=== PATIENT | female | born 1940 | race Caucasian/White ===

== ENCOUNTER → 2017-06-14 | Outpatient (REF) | payer MEDICARE, BC, OTHER | LOC: M SFHCCLAY 10:25 | PROVIDERS: ATTEND Family Medicine | DX: R73.01 Impaired fasting glucose (principal); E78.5 Hyperlipidemia, unspecified | CPT/HCPCS: 80061; 83036; G0463 ==

== ENCOUNTER → 2017-12-14 | Outpatient (CLI) | payer MEDICARE, BC, OTHER | LOC: M CLY 08:28 | DX: M25.775 Osteophyte, left foot (principal); M19.072 Primary osteoarthritis, left ankle and foot | CPT/HCPCS: 73630; G0463 ==

== ENCOUNTER 2018-03-15 10:18 | Day surgery (SDC) | payer MEDICARE, BC, OTHER ==
[~2018-03-15 10:18] MED LIST: LIDOCAINE 2% INJ 100 MG/5 ML SDV (FOR ANES.) As Ordered; PROPOFOL 500 MG/50 ML VIAL As Ordered
[2018-03-15] MEDS: LR 1,000 ML IV (10:50)
[2018-03-15] MEDS ORDERED: PHENYLephrine HCL 500 MCG/5 ML (100MCG/ML) SYRINGE (J2370) As Ordered (11:53)
[2018-03-15] MEDS ORDERED: ePHEDrine SULFATE 25 MG/5 ML(5MG/ML) SYRINGE As Ordered (12:18)
[2018-03-15] MEDS ORDERED: LIQUID POLIBAR PLUS 105% w/v 1900ML BTL As Ordered (13:58)
== END 2018-03-15 14:30 | disposition home or self-care (01) ==
LOC: M OPP 10:18
DX: Z12.11 Encounter for screening for malignant neoplasm of colon (principal); Z80.0 Family history of malignant neoplasm of digestive organs; Q43.8 Other specified congenital malformations of intestine; K56.699 Other intestinal obstruction unspecified as to partial versus complete obstruction; K22.70 Barrett's esophagus without dysplasia; K31.7 Polyp of stomach and duodenum; K44.9 Diaphragmatic hernia without obstruction or gangrene; I35.9 Nonrheumatic aortic valve disorder, unspecified; I12.9 Hypertensive chronic kidney disease with stage 1 through stage 4 chronic kidney disease, or unspecified chronic kidney disease; E78.5 Hyperlipidemia, unspecified; K21.9 Gastro-esophageal reflux disease without esophagitis; G62.9 Polyneuropathy, unspecified; N18.3 Chronic kidney disease, stage 3 (moderate); E66.9 Obesity, unspecified; Z87.891 Personal history of nicotine dependence; Z88.5 Allergy status to narcotic agent; Z79.82 Long term (current) use of aspirin; Z79.899 Other long term (current) drug therapy
CPT/HCPCS: 45378

== ENCOUNTER → 2018-10-03 | Outpatient (REF) | payer MEDICARE, OTHER ==
[~2018-10-03] MED LIST changes: +AMLO5TAB4 PO; +ASPI81TA85 PO; +ATEN50TA2 PO; +ATOR1TAB21 PO; +CALC1CAP31 PO; +FURO20TA2 PO; -LIDOCAINE 2% INJ 100 MG/5 ML SDV (FOR ANES.) As Ordered; +OMEP20CA3 PO; -PROPOFOL 500 MG/50 ML VIAL As Ordered; +SPIR-10 PO
[2018-10-03 11:47] LABS: CHOLESTEROL RISK RATIO 3.272 (<5)
[2018-10-03 12:31] LABS: HEMOGLOBIN A1c 6.4 %
== END ==
LOC: M SFHCCLAY 07:37
PROVIDERS: ATTEND Family Medicine
DX: E78.5 Hyperlipidemia, unspecified (principal); R73.01 Impaired fasting glucose
CPT/HCPCS: 80061; 83036; G0463

== ENCOUNTER → 2019-07-25 | Outpatient (CLI) | payer MEDICARE, OTHER ==
[~2019-07-25] MED LIST changes: -AMLO5TAB4 PO; +AMLO5TAB6 PO; -OMEP20CA3 PO; +OMEP20CA4 PO
--- NOTE | 2019-07-25 14:47 | REP ---
PA and lateral chest: There are no comparisons. The lung foster are hyperinflated. There are no infiltrates. There are no pleural effusions. There are no masses or nodules. The lung foster otherwise clear. Cardiac size is normal. The keith, mediastinum, and skeletal structures are unremarkable for patient age. Impression: Hyperinflation. No acute cardiopulmonary findings. Electronically Signed by Tang Maurice MD 07/25/2019 02:38 P
== END ==
LOC: M CLY 11:35
PROVIDERS: ATTEND Family Medicine
DX: R05 Cough (principal)

== ENCOUNTER → 2019-10-05 | Outpatient (REF) | payer MEDICARE, OTHER ==
[~2019-10-05] MED LIST changes: +OMEP-172 PO; -OMEP20CA4 PO
[2019-10-05 12:29] LABS: CHOLESTEROL RISK RATIO 3.105 (<5)
[2019-10-05 12:45] LABS: HEMOGLOBIN A1c 6.3 %
== END ==
LOC: M SFHCCLAY 08:13
PROVIDERS: ATTEND Family Medicine
DX: E78.5 Hyperlipidemia, unspecified (principal); R73.01 Impaired fasting glucose
CPT/HCPCS: 80061; 83036; G0463

== ENCOUNTER → 2020-02-27 | Outpatient (CLI) | payer MEDICARE, BC, OTHER ==
[~2020-02-27] MED LIST changes: -OMEP-172 PO; +OMEP1CAP73 PO
--- NOTE | 2020-02-27 14:10 | REP ---
MRI BRAIN WITHOUT CONTRAST: HISTORY: Alzheimer's disease, late onset. Memory deficit. No comparison brain imaging. TECHNIQUE: Axial and sagittal imaging planes are utilized for T1- and T2-weighted scans. Sequences include spin-echo, fast spin echo, FLAIR, and diffusion weighted sequences. MRI FINDINGS: No bony calvarial lesion is appreciated. Craniocervical junction and upper cervical cord are unremarkable. No intraorbital abnormality is seen. There is no MR evidence of significant paranasal sinus disease. On diffusion weighted scans, there is no evidence of restricted diffusion to suggest acute ischemia. No evidence of intracranial hemorrhage or mass lesion is observed. There is mild generalized volume loss. T2-weighted scans demonstrate multifocal periventricular and subcortical T2 hyperintense foci consistent with microvascular atherosclerotic changes. The exam is otherwise unremarkable. IMPRESSION: Mild diffuse atrophy and small vessel changes. No acute intracranial abnormality. Electronically Signed by Milind Farias MD 02/27/2020 04:40 P
== END ==
LOC: M RAD 12:04
PROVIDERS: ATTEND Family Medicine
DX: G30.1 Alzheimer's disease with late onset (principal); I67.9 Cerebrovascular disease, unspecified

== ENCOUNTER 2020-07-30 10:22 | Emergency (ER) | payer MEDICARE, BC, OTHER ==
[~2020-07-30] VITALS: Ht 165.1 cm; Wt 76.4 kg
[~2020-07-30 10:22] MED LIST changes: +AMLO1TAB24 PO; -AMLO5TAB6 PO; -ASPI81TA85 PO; +ASPI81TA86 PO
[2020-07-30] MEDS ORDERED: LOSA25TA14 (10:37)
[2020-07-30] MEDS ORDERED: DONE10TA90 (10:37)
[2020-07-30 14:46] VITALS: BP 164/72
--- NOTE | 2020-07-31 08:25 | ECGEPIP ---
[facility] - ED Test Date: 2020-07-30 Pat Name: NICKI LOAIZA Department: Room: - Gender: Female Quality Systems Technician: RONALD : 1940 Requested By: SERGIO NOONAN D.O. Order Number: [id number] Reading MD: Lala Everett Measurements Intervals Caroline Rate: 50 P: 53 PA: 155 QRS: 40 QRSD: 89 T: 56 QT: 412 QTc: 379 Interpretive Statements SINUS BRADYCARDIA NSTTW abnormalities baseline artifact may affect interpretation NO PRIOR Electronically Signed on 07-31-2020 8:25:15 EDT by Lala Everett
== END 2020-07-30 14:47 | disposition home or self-care (01) ==
LOC: M ED 10:22
DX: R00.1 Bradycardia, unspecified (principal); I35.9 Nonrheumatic aortic valve disorder, unspecified; I10 Essential (primary) hypertension; K21.9 Gastro-esophageal reflux disease without esophagitis; F03.90 Unspecified dementia, unspecified severity, without behavioral disturbance, psychotic disturbance, mood disturbance, and anxiety; Z87.891 Personal history of nicotine dependence; Z88.6 Allergy status to analgesic agent; Z79.82 Long term (current) use of aspirin; Z79.899 Other long term (current) drug therapy
CPT/HCPCS: 36415; 84484; 93005; 99284; G0463

== ENCOUNTER → 2020-08-23 | Outpatient (REF) | payer MEDICARE, OTHER ==
[~2020-08-23] MED LIST changes: +DONE10TA90; +LOSA25TA14
[2020-08-23 17:38] LABS: ALBUMIN 3.9 GM/DL (3.2-5.2); BILIRUBIN,TOTAL 1.1 MG/DL (0.2-1.0); CALCIUM LEVEL 9.4 MG/DL (8.8-10.2); CHOLESTEROL RISK RATIO 3.4 (<5); CREATININE FOR GFR 1.29 MG/DL (0.55-1.30); GLOMERULAR FILTRATION RATE 42.6 (>39); POTASSIUM SERUM 4.3 MEQ/L (3.5-5.1); THYROID STIMULATING HORMONE 1.67 uIU/ML (0.358-3.740)
[2020-08-23 18:17] LABS: HEMOGLOBIN A1c 5.6 %
== END ==
LOC: M SFHCCLAY 09:58
PROVIDERS: ATTEND Dermatology
DX: R63.4 Abnormal weight loss (principal); E78.5 Hyperlipidemia, unspecified; R73.01 Impaired fasting glucose

== ENCOUNTER → 2020-10-08 | Outpatient (REF) | payer MEDICARE, OTHER ==
[2020-10-08 16:22] LABS: HEMATOCRIT 43.7 % (36.0-47.0); HEMOGLOBIN 13.7 g/dl (12.0-15.5); MEAN CORPUSCULAR HEMOGLOBIN 27.3 pg (27.0-33.0); MEAN CORPUSCULAR HGB CONC 31.4 g/dl (32.0-36.5); MEAN CORPUSCULAR VOLUME 87.2 fl (80.0-96.0); PLATELET COUNT, AUTOMATED 335 10^3/uL (150-450); RED BLOOD COUNT 5.01 10^6/uL (4.00-5.40); WHITE BLOOD COUNT 7.6 10^3/uL (4.0-10.0)
[2020-10-08 16:27] LABS: ALBUMIN 3.5 GM/DL (3.2-5.2); BILIRUBIN,DIRECT 0.2 MG/DL (0.0-0.2); BILIRUBIN,TOTAL 0.8 MG/DL (0.2-1.0); TOTAL PROTEIN 6.9 GM/DL (6.4-8.2)
== END ==
LOC: M SFHCDERM 09:59
PROVIDERS: ATTEND Dermatology
DX: L40.9 Psoriasis, unspecified (principal)

== ENCOUNTER → 2020-11-15 | Outpatient (REF) | payer MEDICARE, OTHER ==
[2020-11-15 12:26] LABS: BASO % 0.6 % (0.0-1.0); EOS % 0.4 % (0.0-3.0); HEMATOCRIT 45.9 % (36.0-47.0); HEMOGLOBIN 14.7 g/dl (12.0-15.5); LYMPH # 1.1 10^3/uL (1.5-5.0); LYMPH % 20.3 % (24.0-44.0); MEAN CORPUSCULAR HEMOGLOBIN 27.7 pg (27.0-33.0); MEAN CORPUSCULAR VOLUME 86.6 fl (80.0-96.0); MONO # 0.4 10^3/uL (0.0-0.8); MONO % 7.3 % (0.0-5.0); NEUTROPHILS # 3.7 10^3/uL (1.5-8.5); PLATELET COUNT, AUTOMATED 287 10^3/uL (150-450); WHITE BLOOD COUNT 5.2 10^3/uL (4.0-10.0)
[2020-11-15 12:59] LABS: ALBUMIN 4.2 GM/DL (3.2-5.2); BILIRUBIN,TOTAL 1.1 MG/DL (0.2-1.0); CREATININE FOR GFR 1.23 MG/DL (0.55-1.30); POTASSIUM SERUM 4.7 MEQ/L (3.5-5.1); TOTAL PROTEIN 7.2 GM/DL (6.4-8.2)
== END ==
LOC: M SFHCCLAY 09:07
PROVIDERS: ATTEND Family Medicine
DX: I12.9 Hypertensive chronic kidney disease with stage 1 through stage 4 chronic kidney disease, or unspecified chronic kidney disease (principal); N18.32 Chronic kidney disease, stage 3b
CPT/HCPCS: 80053; 85025; G0463

== ENCOUNTER → 2020-12-30 | Outpatient (REF) | payer MEDICARE, OTHER ==
[2020-12-30 16:18] LABS: HEMATOCRIT 42.3 % (36.0-47.0); HEMOGLOBIN 13.6 g/dl (12.0-15.5); MEAN CORPUSCULAR HGB CONC 32.2 g/dl (32.0-36.5); MEAN CORPUSCULAR VOLUME 87.2 fl (80.0-96.0); PLATELET COUNT, AUTOMATED 246 10^3/uL (150-450); RED BLOOD COUNT 4.85 10^6/uL (4.00-5.40); WHITE BLOOD COUNT 8.2 10^3/uL (4.0-10.0)
[2020-12-30 16:37] LABS: ALBUMIN 3.8 GM/DL (3.2-5.2); BILIRUBIN,DIRECT 0.3 MG/DL (0.0-0.2); BILIRUBIN,TOTAL 0.9 MG/DL (0.2-1.0); TOTAL PROTEIN 6.7 GM/DL (6.4-8.2)
== END ==
LOC: M SFHCDERM 12:53
PROVIDERS: ATTEND Dermatology
DX: L40.9 Psoriasis, unspecified (principal)
CPT/HCPCS: 80076; 84478; 85027; G0463

== ENCOUNTER → 2021-01-14 | Outpatient (REF) | payer MEDICARE, OTHER ==
[2021-01-14 17:51] LABS: HEPATITIS A ANTIBODY IGM NEGATIVE (NEGATIVE); HEPATITIS B CORE ANTIBODY IGM NEGATIVE (NEGATIVE); HEPATITIS B SURFACE ANTIBODY NEGATIVE (POSITIVE); HEPATITIS B SURFACE ANTIGEN NEGATIVE (NEGATIVE); HEPATITIS C VIRUS ABY INDEX < 0.0 INDEX (<0.8); HIV 1&2 SCREEN CENTAUR NEGATIVE (NEGATIVE)
== END ==
LOC: M SFHCDERM 11:19
PROVIDERS: ATTEND Dermatology
DX: L40.9 Psoriasis, unspecified (principal)

== ENCOUNTER → 2021-06-05 | Outpatient (REF) | payer MEDICARE, OTHER ==
[2021-06-05 12:35] LABS: ALBUMIN 3.9 GM/DL (3.2-5.2); ALT/SGPT 18 U/L (12-78); BILIRUBIN,TOTAL 1.2 MG/DL (0.2-1.0); BLOOD UREA NITROGEN 18 MG/DL (7-18); CALCIUM LEVEL 9.8 MG/DL (8.8-10.2); CARBON DIOXIDE LEVEL 32 MEQ/L (21-32); CHLORIDE LEVEL 104 MEQ/L (98-107); CHOLESTEROL LEVEL 133 MG/DL (<200); CHOLESTEROL RISK RATIO 2.955 (<5); CREATININE FOR GFR 0.95 MG/DL (0.55-1.30); GLOMERULAR FILTRATION RATE > 60.0 (>39); GLUCOSE, FASTING 89 MG/DL (70-100); HDL CHOLESTEROL 45 MG/DL (>40); LDL CHOLESTEROL 72 MG/DL (<100); MAGNESIUM LEVEL 2.2 MG/DL (1.8-2.4); NON-HDL-C 88 MG/DL; POTASSIUM SERUM 4.3 MEQ/L (3.5-5.1); SODIUM LEVEL 141 MEQ/L (136-145); TRIGLYCERIDES LEVEL 82 MG/DL (<150)
[2021-06-05 13:12] LABS: HEMOGLOBIN A1c 5.6 %
== END ==
LOC: M SFHCCLAY 09:22
PROVIDERS: ATTEND Family Medicine
DX: G30.1 Alzheimer's disease with late onset (principal); R73.01 Impaired fasting glucose; E78.5 Hyperlipidemia, unspecified; K21.9 Gastro-esophageal reflux disease without esophagitis

== ENCOUNTER → 2021-06-20 | Outpatient (REF) | payer MEDICARE, OTHER | LOC: M LAB REF 13:49 | PROVIDERS: ATTEND Physician Assistant | DX: L85.8 Other specified epidermal thickening (principal) ==

== ENCOUNTER → 2021-10-16 | Outpatient (REF) | payer MEDICARE, OTHER ==
[2021-10-16 12:00] LABS: BASO % 0.9 % (0.0-1.0); EOS % 0.9 % (0.0-3.0); HEMATOCRIT 47.1 % (36.0-47.0); HEMOGLOBIN 15.3 g/dl (12.0-15.5); LYMPH # 1.7 10^3/uL (1.5-5.0); MEAN CORPUSCULAR HEMOGLOBIN 28.4 pg (27.0-33.0); MEAN CORPUSCULAR HGB CONC 32.5 g/dl (32.0-36.5); MEAN CORPUSCULAR VOLUME 87.4 fl (80.0-96.0); MONO # 0.5 10^3/uL (0.0-0.8); MONO % 9.6 % (2.0-8.0); NEUTROPHILS # 2.4 10^3/uL (1.5-8.5); NEUTROPHILS % 51.4 % (36.0-66.0); PLATELET COUNT, AUTOMATED 212 10^3/uL (150-450); RED BLOOD COUNT 5.39 10^6/uL (4.00-5.40); WHITE BLOOD COUNT 4.7 10^3/uL (4.0-10.0)
[2021-10-16 12:34] LABS: ALBUMIN 3.9 GM/DL (3.2-5.2); BILIRUBIN,TOTAL 1.5 MG/DL (0.2-1.0); CALCIUM LEVEL 9.4 MG/DL (8.8-10.2); CREATININE FOR GFR 1.08 MG/DL (0.55-1.30); GLOMERULAR FILTRATION RATE 52.1 (>39); POTASSIUM SERUM 3.9 MEQ/L (3.5-5.1)
[2021-10-16 12:48] LABS: HEMOGLOBIN A1c 5.3 %
== END ==
LOC: M SFHCCLAY 07:33
PROVIDERS: ATTEND Family Medicine
DX: I12.9 Hypertensive chronic kidney disease with stage 1 through stage 4 chronic kidney disease, or unspecified chronic kidney disease (principal); R73.01 Impaired fasting glucose; N18.9 Chronic kidney disease, unspecified

== ENCOUNTER → 2022-01-07 | Outpatient (REF) | payer MEDICARE, OTHER ==
[~2022-01-07] MED LIST changes: +LOSA25TA13; -LOSA25TA14
== END ==
LOC: M SFHCCLAY 14:07
PROVIDERS: ATTEND Physician Assistant
DX: R10.2 Pelvic and perineal pain (principal)

== ENCOUNTER → 2022-03-19 | Outpatient (CLI) | payer MEDICARE, BC | LOC: M CLY 11:48 | PROVIDERS: ATTEND Family Medicine | DX: R91.8 Other nonspecific abnormal finding of lung field (principal); R05.9 Cough, unspecified ==

== ENCOUNTER → 2022-03-24 | Outpatient (REF) | payer MEDICARE, OTHER | LOC: M SFHCCLAY 13:00 | PROVIDERS: ATTEND Family Medicine | DX: N30.00 Acute cystitis without hematuria (principal) ==

== ENCOUNTER → 2022-08-18 | Outpatient (REF) | payer MEDICARE, OTHER ==
[2022-08-18 12:33] LABS: CALCIUM LEVEL 9.6 MG/DL (8.8-10.2); CREATININE FOR GFR 0.97 MG/DL (0.55-1.30); GLOMERULAR FILTRATION RATE 58.8 (>32)
[2022-08-18 15:57] LABS: HEMATOCRIT 43.1 % (36.0-47.0); HEMOGLOBIN 14.4 g/dl (12.0-15.5); MEAN CORPUSCULAR HGB CONC 33.4 g/dl (32.0-36.5); MEAN CORPUSCULAR VOLUME 86.7 fl (80.0-96.0); PLATELET COUNT, AUTOMATED 190 10^3/uL (150-450); RED BLOOD COUNT 4.97 10^6/uL (4.00-5.40); WHITE BLOOD COUNT 4.5 10^3/uL (4.0-10.0)
== END ==
LOC: M LABDRAWC 11:16
PROVIDERS: ATTEND Nurse Practitioner Family
DX: I42.8 Other cardiomyopathies (principal); I35.0 Nonrheumatic aortic (valve) stenosis; R06.02 Shortness of breath

== ENCOUNTER → 2022-08-18 | Outpatient (REF) | payer MEDICARE, OTHER ==
[2022-08-18 11:55] LABS: BASO % 0.9 % (0.0-1.0); EOS % 0.9 % (0.0-3.0); HEMATOCRIT 43.2 % (36.0-47.0); HEMOGLOBIN 14.3 g/dl (12.0-15.5); LYMPH # 1.6 10^3/uL (1.5-5.0); LYMPH % 36.1 % (24.0-44.0); MEAN CORPUSCULAR HEMOGLOBIN 28.7 pg (27.0-33.0); MEAN CORPUSCULAR HGB CONC 33.1 g/dl (32.0-36.5); MEAN CORPUSCULAR VOLUME 86.7 fl (80.0-96.0); MONO # 0.4 10^3/uL (0.0-0.8); MONO % 8.4 % (2.0-8.0); NEUTROPHILS # 2.4 10^3/uL (1.5-8.5); NEUTROPHILS % 53.5 % (36.0-66.0); PLATELET COUNT, AUTOMATED 186 10^3/uL (150-450); RED BLOOD COUNT 4.98 10^6/uL (4.00-5.40); WHITE BLOOD COUNT 4.5 10^3/uL (4.0-10.0)
[2022-08-18 12:14] LABS: HEMOGLOBIN A1c 5.4 %
[2022-08-18 12:34] LABS: ALBUMIN 3.8 GM/DL (3.2-5.2); CALCIUM LEVEL 9.4 MG/DL (8.8-10.2); CHOLESTEROL RISK RATIO 2.891 (<5); GLOMERULAR FILTRATION RATE 56.8 (>32)
== END ==
LOC: M SFHCCLAY 09:33
PROVIDERS: ATTEND Family Medicine
DX: N18.32 Chronic kidney disease, stage 3b (principal); I10 Essential (primary) hypertension; E78.5 Hyperlipidemia, unspecified; R73.01 Impaired fasting glucose

== ENCOUNTER → 2022-08-24 | Outpatient (CLI) | payer MEDICARE, OTHER | LOC: M CLY 09:02 | PROVIDERS: ATTEND Family Medicine | DX: R05.3 Chronic cough (principal) ==

== ENCOUNTER → 2022-08-28 | Outpatient (CLI) | payer MEDICARE, BC | LOC: M LAB 11:45 | PROVIDERS: ATTEND Nurse Practitioner Family | DX: L40.9 Psoriasis, unspecified (principal) ==

== ENCOUNTER → 2023-01-08 | Outpatient (CLI) | payer MEDICARE, BC, OTHER | LOC: M CLY 13:55 | PROVIDERS: ATTEND Physician Assistant | DX: R05.1 Acute cough (principal); Z95.2 Presence of prosthetic heart valve ==

== ENCOUNTER → 2023-01-15 | Outpatient (REF) | payer MEDICARE, OTHER | LOC: M SFHCCLAY 13:00 | PROVIDERS: ATTEND Physician Assistant | DX: N39.0 Urinary tract infection, site not specified (principal) ==

== ENCOUNTER → 2023-02-26 | Outpatient (REF) | payer MEDICARE, BC, OTHER | LOC: M SFHCDERM 14:18 | PROVIDERS: ATTEND Nurse Practitioner Family | DX: C44.310 Basal cell carcinoma of skin of unspecified parts of face (principal) ==

== ENCOUNTER → 2023-03-30 | Outpatient (CLI) | payer MEDICARE, BC, OTHER ==
[2023-03-30 14:40] LABS: HEMATOCRIT 46.7 % (36.0-47.0); HEMOGLOBIN 15.4 g/dl (12.0-15.5); MEAN CORPUSCULAR HEMOGLOBIN 28.9 pg (27.0-33.0); MEAN CORPUSCULAR VOLUME 87.6 fl (80.0-96.0); PLATELET COUNT, AUTOMATED 216 10^3/uL (150-450); RED BLOOD COUNT 5.33 10^6/uL (4.00-5.40); WHITE BLOOD COUNT 5.5 10^3/uL (4.0-10.0)
[2023-03-30 15:08] LABS: ALBUMIN 4.1 G/DL (3.2-5.2); BILIRUBIN,TOTAL 1.1 MG/DL (0.3-1.2); CALCIUM LEVEL 9.3 MG/DL (8.3-10.6); CREATININE FOR GFR 1.01 MG/DL (0.55-1.30); GLOMERULAR FILTRATION RATE 56.1 (>32); POTASSIUM SERUM 3.7 MMOL/L (3.5-5.1)
== END ==
LOC: M PLALAB 11:03
PROVIDERS: ATTEND Nurse Practitioner Family
DX: I42.9 Cardiomyopathy, unspecified (principal); R06.02 Shortness of breath; I35.0 Nonrheumatic aortic (valve) stenosis

== ENCOUNTER → 2023-06-08 | Outpatient (REF) | payer MEDICARE, BC, OTHER | LOC: M SFHCCLAY 11:52 | PROVIDERS: ATTEND Family Medicine | DX: N30.00 Acute cystitis without hematuria (principal) ==

== ENCOUNTER → 2023-06-30 | Outpatient (REF) | payer MEDICARE, OTHER ==
[2023-06-30 18:55] LABS: BASO % 0.6 % (0.0-1.0); EOS % 0.8 % (0.0-3.0); HEMATOCRIT 45.1 % (36.0-47.0); LYMPH # 1.7 10^3/uL (1.5-5.0); MEAN CORPUSCULAR HEMOGLOBIN 29.2 pg (27.0-33.0); MEAN CORPUSCULAR HGB CONC 33.3 g/dl (32.0-36.5); MEAN CORPUSCULAR VOLUME 87.7 fl (80.0-96.0); MONO # 0.4 10^3/uL (0.0-0.8); MONO % 7.9 % (2.0-8.0); NEUTROPHILS # 2.9 10^3/uL (1.5-8.5); NEUTROPHILS % 56.5 % (36.0-66.0); PLATELET COUNT, AUTOMATED 202 10^3/uL (150-450); RED BLOOD COUNT 5.14 10^6/uL (4.00-5.40); WHITE BLOOD COUNT 5.1 10^3/uL (4.0-10.0)
[2023-06-30 19:18] LABS: BILIRUBIN,TOTAL 0.9 MG/DL (0.3-1.2); CALCIUM LEVEL 9.4 MG/DL (8.3-10.6); CREATININE FOR GFR 1.05 MG/DL (0.55-1.30); GLOMERULAR FILTRATION RATE 53.5 (>32); TOTAL PROTEIN 6.8 G/DL (5.7-8.2)
== END ==
LOC: M SFHCCLAY 11:46
PROVIDERS: ATTEND Physician Assistant
DX: R05.1 Acute cough (principal); E87.6 Hypokalemia

== ENCOUNTER → 2023-08-09 | Outpatient (REF) | payer MEDICARE, BC, OTHER | LOC: M SFHCCLAY 14:55 | PROVIDERS: ATTEND Physician Assistant | DX: R30.0 Dysuria (principal) ==

== ENCOUNTER → 2023-09-13 | Outpatient (CLI) | payer MEDICARE, BC, OTHER ==
[2023-09-13 17:11] LABS: APPEARANCE, URINE CLEAR (CLEAR); BACTERIA, URINE AUTO NEGATIVE (NEGATIVE); BILIRUBIN, URINE AUTO NEGATIVE (NEGATIVE); BLOOD, URINE BLOOD NEGATIVE (NEGATIVE); COLOR, URINE STRAW (YELLOW); GLUCOSE, URINE (UA) AUTO NEGATIVE (NEGATIVE); KETONE, URINE AUTO NEGATIVE (NEGATIVE); LEUKOCYTE ESTERASE, URINE AUTO NEGATIVE (NEGATIVE); MUCUS, URINE SMALL (NEGATIVE); NITRITE, URINE AUTO NEGATIVE (NEGATIVE); PROTEIN, URINE AUTO NEGATIVE (NEGATIVE); RBC, URINE AUTO 0 /HPF (0-3); SPECIFIC GRAVITY URINE AUTO 1.005 (1.002-1.035); SQUAMOUS EPITHELIAL CELL UR AU 0 /HPF (0-6); UROBILINOGEN, URINE AUTO 0.2 mg/dL (0.0-2.0); WBC, URINE AUTO 0 /HPF (0-3)
== END ==
LOC: M CLY 10:55
PROVIDERS: ATTEND Family Medicine
DX: R05.2 Subacute cough (principal); Z79.899 Other long term (current) drug therapy

== ENCOUNTER → 2023-09-13 | Outpatient (CLI) | payer MEDICARE, BC, OTHER | LOC: M CLY 10:34 | PROVIDERS: ATTEND Family Medicine | DX: R05.2 Subacute cough (principal) ==

== ENCOUNTER → 2023-10-19 | Outpatient (REF) | payer MEDICARE, BC, OTHER ==
[2023-10-19 17:52] LABS: RSV AMPLIFICATION NEGATIVE (NEGATIVE)
== END ==
LOC: M SFHCCLAY 14:28
PROVIDERS: ATTEND Family Medicine
DX: B34.9 Viral infection, unspecified (principal)

== ENCOUNTER → 2023-11-01 | Outpatient (REF) | payer MEDICARE, BC, OTHER ==
[2023-11-01 18:03] LABS: BASO % 0.4 % (0.0-1.0); EOS % 0.4 % (0.0-3.0); HEMATOCRIT 45.9 % (36.0-47.0); HEMOGLOBIN 15.1 g/dl (12.0-15.5); LYMPH # 1.4 10^3/uL (1.5-5.0); LYMPH % 25.8 % (24.0-44.0); MEAN CORPUSCULAR HEMOGLOBIN 28.7 pg (27.0-33.0); MEAN CORPUSCULAR HGB CONC 32.9 g/dl (32.0-36.5); MEAN CORPUSCULAR VOLUME 87.3 fl (80.0-96.0); MONO # 0.4 10^3/uL (0.0-0.8); MONO % 7.1 % (2.0-8.0); NEUTROPHILS # 3.5 10^3/uL (1.5-8.5); NEUTROPHILS % 65.7 % (36.0-66.0); PLATELET COUNT, AUTOMATED 241 10^3/uL (150-450); RED BLOOD COUNT 5.26 10^6/uL (4.00-5.40); WHITE BLOOD COUNT 5.2 10^3/uL (4.0-10.0)
[2023-11-01 18:32] LABS: ALBUMIN 3.7 G/DL (3.2-5.2); ALKALINE PHOSPHATASE 68 U/L (46-116); ALT/SGPT 13 U/L (7.0-40); AST/SGOT 13 U/L (<34); BILIRUBIN,TOTAL 1.1 MG/DL (0.3-1.2); BLOOD UREA NITROGEN 15 MG/DL (9-23); CALCIUM LEVEL 9.2 MG/DL (8.3-10.6); CARBON DIOXIDE LEVEL 35 MMOL/L (20-31); CHLORIDE LEVEL 104 MMOL/L (98-107); CREATININE FOR GFR 0.95 MG/DL (0.55-1.30); GLOMERULAR FILTRATION RATE > 60.0 (>32); GLUCOSE, FASTING 103 MG/DL (74-106); MAGNESIUM LEVEL 2.1 MG/DL (1.8-2.4); POTASSIUM SERUM 4.4 MMOL/L (3.5-5.1); SODIUM LEVEL 142 MMOL/L (136-145); TOTAL PROTEIN 6.7 G/DL (5.7-8.2)
== END ==
LOC: M SFHCCLAY 09:39
PROVIDERS: ATTEND Family Medicine
DX: R53.1 Weakness (principal); I50.9 Heart failure, unspecified; I12.9 Hypertensive chronic kidney disease with stage 1 through stage 4 chronic kidney disease, or unspecified chronic kidney disease; R35.0 Frequency of micturition

== ENCOUNTER → 2023-12-09 | Outpatient (REF) | payer MEDICARE, OTHER ==
[2023-12-09 12:35] LABS: APPEARANCE, URINE CLEAR (CLEAR); BACTERIA, URINE AUTO NEGATIVE (NEGATIVE); BILIRUBIN, URINE AUTO NEGATIVE (NEGATIVE); BLOOD, URINE BLOOD NEGATIVE (NEGATIVE); COLOR, URINE YELLOW (YELLOW); GLUCOSE, URINE (UA) AUTO NEGATIVE (NEGATIVE); KETONE, URINE AUTO NEGATIVE (NEGATIVE); LEUKOCYTE ESTERASE, URINE AUTO TRACE (NEGATIVE); MUCUS, URINE SMALL (NEGATIVE); NITRITE, URINE AUTO NEGATIVE (NEGATIVE); PROTEIN, URINE AUTO NEGATIVE (NEGATIVE); RBC, URINE AUTO 1 /HPF (0-3); SPECIFIC GRAVITY URINE AUTO 1.018 (1.002-1.035); SQUAMOUS EPITHELIAL CELL UR AU 1 /HPF (0-6); WBC, URINE AUTO 8 /HPF (0-3)
== END ==
LOC: M SFHCCLAY 11:22
PROVIDERS: ATTEND Family Medicine
DX: R35.0 Frequency of micturition (principal)

== ENCOUNTER → 2024-02-24 | Outpatient (REF) | payer MEDICARE, OTHER ==
[2024-02-24 12:15] LABS: APPEARANCE, URINE CLEAR (CLEAR); BACTERIA, URINE AUTO NEGATIVE (NEGATIVE); BILIRUBIN, URINE AUTO NEGATIVE (NEGATIVE); BLOOD, URINE BLOOD NEGATIVE (NEGATIVE); COLOR, URINE YELLOW (YELLOW); GLUCOSE, URINE (UA) AUTO NEGATIVE (NEGATIVE); KETONE, URINE AUTO NEGATIVE (NEGATIVE); LEUKOCYTE ESTERASE, URINE AUTO NEGATIVE (NEGATIVE); NITRITE, URINE AUTO NEGATIVE (NEGATIVE); PROTEIN, URINE AUTO NEGATIVE (NEGATIVE); RBC, URINE AUTO 0 /HPF (0-3); SQUAMOUS EPITHELIAL CELL UR AU 1 /HPF (0-6); WBC, URINE AUTO 3 /HPF (0-3)
== END ==
LOC: M SFHCWAGY 11:49
PROVIDERS: ATTEND Family Medicine
DX: R35.0 Frequency of micturition (principal)

== ENCOUNTER → 2024-09-12 | Outpatient (REF) | payer MEDICARE, BC ==
[2024-09-12 11:22] LABS: HEMATOCRIT 48.2 % (36.0-47.0); HEMOGLOBIN 15.9 g/dl (12.0-15.5); MEAN CORPUSCULAR HEMOGLOBIN 28.5 pg (27.0-33.0); MEAN CORPUSCULAR VOLUME 86.5 fl (80.0-96.0); PLATELET COUNT, AUTOMATED 193 10^3/uL (150-450); RED BLOOD COUNT 5.57 10^6/uL (4.00-5.40); WHITE BLOOD COUNT 5.2 10^3/uL (4.0-10.0)
[2024-09-12 11:33] LABS: HEMOGLOBIN A1c 5.6 % (4.0-6.0)
[2024-09-12 11:46] LABS: BILIRUBIN,TOTAL 1.2 MG/DL (0.3-1.2); CALCIUM LEVEL 9.5 MG/DL (8.3-10.6); CHOLESTEROL RISK RATIO 3.26 (<5); CREATININE FOR GFR 1.05 MG/DL (0.55-1.30); GLOMERULAR FILTRATION RATE 53.4 (>32); HDL CHOLESTEROL 43.8 MG/DL (>40); NON-HDL-C 99.2 MG/DL; TOTAL PROTEIN 7.3 G/DL (5.7-8.2)
[2024-09-12 11:47] LABS: THYROID STIMULATING HORMONE 2.185 uIU/ML (0.55-4.78)
== END ==
LOC: M SFHCCLAY 08:56
PROVIDERS: ATTEND Family Medicine
DX: I12.9 Hypertensive chronic kidney disease with stage 1 through stage 4 chronic kidney disease, or unspecified chronic kidney disease (principal); E78.5 Hyperlipidemia, unspecified; R73.01 Impaired fasting glucose

== ENCOUNTER → 2024-10-27 | Outpatient (REF) | payer MEDICARE, BC ==
[2024-10-27 13:22] LABS: APPEARANCE, URINE CLEAR (CLEAR); BACTERIA, URINE AUTO 1+ (NEGATIVE); BILIRUBIN, URINE AUTO NEGATIVE (NEGATIVE); BLOOD, URINE BLOOD NEGATIVE (NEGATIVE); COLOR, URINE YELLOW (YELLOW); GLUCOSE, URINE (UA) AUTO NEGATIVE (NEGATIVE); KETONE, URINE AUTO NEGATIVE (NEGATIVE); LEUKOCYTE ESTERASE, URINE AUTO TRACE (NEGATIVE); NITRITE, URINE AUTO NEGATIVE (NEGATIVE); PROTEIN, URINE AUTO NEGATIVE (NEGATIVE); RBC, URINE AUTO 0 /HPF (0-3); SQUAMOUS EPITHELIAL CELL UR AU 1 /HPF (0-6); WBC, URINE AUTO 6 /HPF (0-3)
== END ==
LOC: M SFHCCLAY 08:52
PROVIDERS: ATTEND Family Medicine
DX: R35.0 Frequency of micturition (principal)

== ENCOUNTER 2024-12-27 10:36 | Emergency (ER) | payer MEDICARE, BC ==
[~2024-12-27] VITALS: Ht 165.1 cm; Wt 80.6 kg
[~2024-12-27 10:36] MED LIST changes: +BUSP5TA; +CETI10CH PO; +FLUT50BL; +FLUTISP; +FURO20TA2; +HUMI40IN2; +MEMA28CA12; +METO1TAB32; +OMEP-173 PO; +POTA1TAB23; +SERT25TA21
[2024-12-27 15:15] LABS: VENOUS BASE EXCESS 3.3 (-2.0-2.0); VENOUS HCO3 31.2 MMOL/L (23.0-27.0); VENOUS O2 SATURATION 42.1 % (60.0-80.0); VENOUS PARTIAL PRESSURE CO2 59.7 mmHg (38.0-50.0); VENOUS PARTIAL PRESSURE O2 24.4 mmHg (30.0-50.0); VENOUS PH 7.336 UNITS (7.330-7.430); VENOUS STANDARD HCO3 25.8 MMOL/L
[2024-12-27] MEDS: IPRATROPIUM 0.5MG/ALBUTEROL 2.5MG INH SOL UD 3ML (DUONEB) NEB ONE (15:16)
[2024-12-27 15:45] LABS: ALBUMIN 4.1 G/DL (3.2-5.2); BILIRUBIN,DIRECT 0.4 MG/DL (<0.4); CALCIUM LEVEL 9.1 MG/DL (8.3-10.6); CK-MB VALUE MASS 1.5 NG/ML (<3.6); CREATININE FOR GFR 1.01 MG/DL (0.55-1.30); GLOMERULAR FILTRATION RATE 55.9 (>32); POTASSIUM SERUM 3.7 MMOL/L (3.5-5.1); TOTAL PROTEIN 7.6 G/DL (5.7-8.2)
[2024-12-27 15:47] LABS: MB/CK RELATIVE INDEX 2.45 (< OR =4)
[2024-12-27] MEDS: ACETAMINOPHEN 325 MG TAB PO ONE (16:00)
[2024-12-27] MEDS: dexAMETHasone 20MG/5ML VIAL IV ONE (16:25)
[2024-12-27 16:37] LABS: CK-MB VALUE MASS < 1.0 NG/ML (<3.6); CPK CREATINE PHOSPHOKINASE 57 U/L (34-145); MB/CK RELATIVE INDEX 1.75 (< OR =4)
[2024-12-27 17:10] LABS: BASO % 0.9 % (0.0-1.0); HEMATOCRIT 44.3 % (36.0-47.0); HEMOGLOBIN 14.6 g/dl (12.0-15.5); LYMPH # 0.7 10^3/uL (1.5-5.0); LYMPH % 29.3 % (24.0-44.0); MEAN CORPUSCULAR HEMOGLOBIN 28.7 pg (27.0-33.0); MEAN CORPUSCULAR VOLUME 87.2 fl (80.0-96.0); MONO # 0.3 10^3/uL (0.0-0.8); MONO % 10.9 % (2.0-8.0); NEUTROPHILS # 1.3 10^3/uL (1.5-8.5); NEUTROPHILS % 58.5 % (36.0-66.0); PLATELET COUNT, AUTOMATED 154 10^3/uL (150-450); RED BLOOD COUNT 5.08 10^6/uL (4.00-5.40); WHITE BLOOD COUNT 2.3 10^3/uL (4.0-10.0)
[2024-12-27 17:58] VITALS: BP 145/66; TEMP 97.5; O2SAT 94
== END 2024-12-27 18:13 | disposition home or self-care (01) ==
LOC: M ED 10:36
DX: R05.9 Cough, unspecified (principal); B97.4 Respiratory syncytial virus as the cause of diseases classified elsewhere; I45.81 Long QT syndrome; I10 Essential (primary) hypertension; K21.9 Gastro-esophageal reflux disease without esophagitis; E78.5 Hyperlipidemia, unspecified; F03.90 Unspecified dementia, unspecified severity, without behavioral disturbance, psychotic disturbance, mood disturbance, and anxiety; Z86.79 Personal history of other diseases of the circulatory system; Z88.5 Allergy status to narcotic agent; Z88.8 Allergy status to other drugs, medicaments and biological substances; Z79.02 Long term (current) use of antithrombotics/antiplatelets; Z79.899 Other long term (current) drug therapy
CPT/HCPCS: 71045; 80048; 80076; 82550; 82553; 82803; 83605; 83880; 84484; 85025; 87040; 87486; 87581; 87633; 87798; 93005; 96374; 99284; J1100

== ENCOUNTER → 2025-02-14 | Outpatient (CLI) | payer MEDICARE, BC | LOC: M CLY 14:58 | PROVIDERS: ATTEND Nurse Practitioner Family | DX: J20.9 Acute bronchitis, unspecified (principal) ==

== ENCOUNTER → 2025-02-14 | Outpatient (REF) | payer MEDICARE, OTHER | LOC: M SFHCCLAY 17:01 | PROVIDERS: ATTEND Nurse Practitioner Family | DX: R30.0 Dysuria (principal) ==

== ENCOUNTER → 2025-02-15 | Outpatient (REF) | payer MEDICARE, BC ==
[2025-02-15 17:25] LABS: BASO # 0.1 10^3/uL (0.0-0.2); BASO % 0.7 % (0.0-1.0); EOS % 0.4 % (0.0-3.0); HEMATOCRIT 46.7 % (36.0-47.0); HEMOGLOBIN 15.1 g/dl (12.0-15.5); MEAN CORPUSCULAR HEMOGLOBIN 28.5 pg (27.0-33.0); MEAN CORPUSCULAR HGB CONC 32.3 g/dl (32.0-36.5); MEAN CORPUSCULAR VOLUME 88.1 fl (80.0-96.0); MONO # 0.4 10^3/uL (0.0-0.8); MONO % 5.6 % (2.0-8.0); NEUTROPHILS # 4.3 10^3/uL (1.5-8.5); NEUTROPHILS % 64.2 % (36.0-66.0); PLATELET COUNT, AUTOMATED 221 10^3/uL (150-450); WHITE BLOOD COUNT 6.7 10^3/uL (4.0-10.0)
[2025-02-15 17:34] LABS: ALBUMIN 3.7 G/DL (3.2-5.2); BILIRUBIN,TOTAL 0.9 MG/DL (0.3-1.2); CALCIUM LEVEL 9.4 MG/DL (8.3-10.6); CREATININE FOR GFR 1.02 MG/DL (0.55-1.30); GLOMERULAR FILTRATION RATE 54.9 (>32); POTASSIUM SERUM 3.7 MMOL/L (3.5-5.1); TOTAL PROTEIN 6.9 G/DL (5.7-8.2)
== END ==
LOC: M SFHCCLAY 09:48
PROVIDERS: ATTEND Family Medicine
DX: R53.1 Weakness (principal); I50.9 Heart failure, unspecified; I12.9 Hypertensive chronic kidney disease with stage 1 through stage 4 chronic kidney disease, or unspecified chronic kidney disease

== ENCOUNTER → 2025-05-01 | Outpatient (REF) | payer MEDICARE, BC ==
[2025-05-01 13:34] LABS: APPEARANCE, URINE CLEAR (CLEAR); BACTERIA, URINE AUTO NEGATIVE (NEGATIVE); BILIRUBIN, URINE AUTO NEGATIVE (NEGATIVE); BLOOD, URINE BLOOD NEGATIVE (NEGATIVE); GLUCOSE, URINE (UA) AUTO NEGATIVE (NEGATIVE); KETONE, URINE AUTO NEGATIVE (NEGATIVE); LEUKOCYTE ESTERASE, URINE AUTO TRACE (NEGATIVE); MUCUS, URINE SMALL (NEGATIVE); NITRITE, URINE AUTO NEGATIVE (NEGATIVE); PROTEIN, URINE AUTO NEGATIVE (NEGATIVE); RBC, URINE AUTO 1 /HPF (0-3); SPECIFIC GRAVITY URINE AUTO 1.019 (1.002-1.035); SQUAMOUS EPITHELIAL CELL UR AU 1 /HPF (0-6); UROBILINOGEN, URINE AUTO 2.0 mg/dL (0.0-2.0); WBC, URINE AUTO 10 /HPF (0-3)
== END ==
LOC: M SFHCCLAY 07:38
PROVIDERS: ATTEND Family Medicine
DX: R39.15 Urgency of urination (principal); R35.0 Frequency of micturition

== ENCOUNTER → 2025-07-10 | Outpatient (CLI) | payer MEDICARE, BC | LOC: M CLY 13:44 | PROVIDERS: ATTEND Family Medicine | DX: J18.9 Pneumonia, unspecified organism (principal) ==

== ENCOUNTER → 2025-07-10 | Outpatient (CLI) | payer MEDICARE, BC | LOC: M CLY 13:31 | PROVIDERS: ATTEND Family Medicine | DX: J18.9 Pneumonia, unspecified organism (principal) ==

== ENCOUNTER 2025-09-14 10:20 | Observation (INO) | payer MEDICARE, BC ==
[~2025-09-14] VITALS: Ht 165.1 cm; Wt 81.2 kg
[~2025-09-14 10:20] MED LIST changes: -BUSP5TA; +BUSP5TA PO; -FLUTISP; +FLUTISP NARES; -FURO20TA2; -HUMI40IN2; +HUMI40IN2 INJ; -MEMA28CA12; +MEMA28CA12 PO; -METO1TAB32; +METO1TAB32 PO; -POTA1TAB23; +POTA1TAB23 PO; -SERT25TA21; +SERT25TA21 PO
[2025-09-14] MEDS ORDERED: ISOVUE-370 76% 100 ML VIAL As Ordered ONE (10:42)
[2025-09-14 10:48] LABS: VENOUS BASE EXCESS 3.0 (-2.0-2.0); VENOUS HCO3 27.7 MMOL/L (23.0-27.0); VENOUS O2 SATURATION 90.5 % (60.0-80.0); VENOUS PARTIAL PRESSURE CO2 42.6 mmHg (38.0-50.0); VENOUS PARTIAL PRESSURE O2 57.5 mmHg (30.0-50.0); VENOUS PH 7.431 UNITS (7.330-7.430); VENOUS STANDARD HCO3 26.9 MMOL/L; VENOUS TOTAL CO2 29.0 MMOL/L (24.0-28.0)
[2025-09-14 10:50] LABS: BASO # 0.0 10^3/uL (0.0-0.2); BASO % 0.4 % (0.0-1.0); EOS # 0.0 10^3/uL (0.0-0.5); EOS % 0.4 % (0.0-3.0); LYMPH # 1.4 10^3/uL (1.5-5.0); LYMPH % 25.8 % (24.0-44.0); MONO # 0.4 10^3/uL (0.0-0.8); MONO % 7.1 % (2.0-8.0); NEUTROPHILS # 3.6 10^3/uL (1.5-8.5); NEUTROPHILS % 65.9 % (36.0-66.0); PLATELET COUNT, AUTOMATED 155 10^3/uL (150-450)
[2025-09-14 11:19] LABS: ETHYL ALCOHOL (ETHANOL) 0.004 % (0.000-0.010)
[2025-09-14 11:21] LABS: ALT/SGPT 18 U/L (7.0-40); AST/SGOT 26 U/L (<34); CALCIUM LEVEL 9.0 MG/DL (8.3-10.6); CARBON DIOXIDE LEVEL 30 MMOL/L (20-31); CHLORIDE LEVEL 106 MMOL/L (98-107); CK-MB VALUE MASS 1.3 NG/ML (<3.6); CREATININE FOR GFR 0.95 MG/DL (0.55-1.30); GLOMERULAR FILTRATION RATE 59.5 (>32); POTASSIUM SERUM 4.4 MMOL/L (3.5-5.1); SALICYLATE LEVEL < 3.0 MG/DL (<30); SODIUM LEVEL 145 MMOL/L (136-145)
[2025-09-14 11:22] LABS: OSMOLALITY SERUM 304 MOSM/KG (280-301)
[2025-09-14 11:27] LABS: CPK CREATINE PHOSPHOKINASE 45 U/L (34-145); MB/CK RELATIVE INDEX 2.88 (< OR =4)
[2025-09-14 12:08] LABS: CK-MB VALUE MASS 1.4 NG/ML (<3.6)
[2025-09-14 12:14] LABS: CPK CREATINE PHOSPHOKINASE 44.0 U/L (34-145); MB/CK RELATIVE INDEX 3.18 (< OR =4)
[2025-09-14] MEDS ORDERED: MIRT-88 PO (13:04)
[2025-09-14] MEDS ORDERED: CETI-24 PO (13:04)
[2025-09-14] MEDS ORDERED: ASPI81TA26 PO (13:04)
[2025-09-14] MEDS ORDERED: TREL1AER INH (13:04)
[2025-09-14] MEDS ORDERED: CVS500CA5 PO (13:04)
[2025-09-14] MEDS ORDERED: AMOX875T2 PO (13:04)
[2025-09-14] MEDS ORDERED: VENTAER INH (13:04)
[2025-09-14 13:05] VITALS: BP 129/95
[2025-09-14] MEDS ORDERED: HOME MED LIST COMPLETE! XX SCH (13:05)
[2025-09-14] MEDS: METOPROLOL SUCC. 25 MG *XL* TAB PO ONE (13:05)
[2025-09-14] MEDS ORDERED: MAALOX 30 ML SUSP *UDC PO PRN (14:30)
[2025-09-14] MEDS ORDERED: ALBUTEROL 90 MCG/ACT 8 GM HFA INHALER INH PRN (14:50)
[2025-09-14] MEDS: METOPROLOL SUCC *XL* 12.5 MG PER 1/2 TAB PO SCH (15:15)
[2025-09-14 16:08] LABS: KETONE, URINE AUTO RFX NEGATIVE (NEGATIVE); LEUKOCYTE ESTERASE UR AUTO RFX NEGATIVE (NEGATIVE); NITRITE, URINE AUTO RFX NEGATIVE (NEGATIVE); RBC, URINE AUTO RFX 0 /HPF (0-3); SQUAM EPITHELIAL CELL UR AURFX 0 /HPF (0-6); WBC, URINE AUTO RFX 0 /HPF (0-3)
[2025-09-14 16:15] LABS: AMPHETAMINES LEVEL URINE NEGATIVE (NEGATIVE); BARBITURATES URINE NEGATIVE (NEGATIVE); BENZODIAZEPINES URINE NEGATIVE (NEGATIVE); CANNABINOIDS URINE NEGATIVE (NEGATIVE); COCAINE METABOLITE URINE NEGATIVE (NEGATIVE); METHADONE URINE NEGATIVE (NEGATIVE); OPIATES URINE NEGATIVE (NEGATIVE); PHENCYCLIDINE URINE NEGATIVE (NEGATIVE)
[2025-09-14] MEDS: ASPIRIN 81 MG ENTERIC TABLET PO SCH (19:50)
[2025-09-14] MEDS: SERTRALINE HCL 25 MG TABLET PO SCH (19:51)
[2025-09-14] MEDS: ATORVASTATIN 20 MG TAB PO SCH (19:51)
[2025-09-14] MEDS: CETIRIZINE 10 MG TAB PO SCH (19:51)
[2025-09-14 21:13] VITALS: BP 163/87; TEMP 96.6; O2SAT 93
[2025-09-14] MEDS: OMEPRAZOLE 20MG CAP PO SCH (21:37)
[2025-09-14] MEDS: busPIRone 5 MG TAB PO SCH (21:37)
[2025-09-14] MEDS: ACETAMINOPHEN 325 MG TAB PO PRN (21:38)
[2025-09-14] MEDS: MIRTAZAPINE 15 MG TAB PO PRN (21:39)
[2025-09-14] MEDS: HEPARIN SOD 5000 UNITS/ML 1 ML VIAL/SYRINGE SC SCH (21:46)
[2025-09-14 23:46] VITALS: BP 156/70; TEMP 96.5; O2SAT 90
[2025-09-15 04:09] VITALS: BP 150/67; TEMP 97; O2SAT 94
[2025-09-15 06:23] LABS: CHOLESTEROL LEVEL 103.0 MG/DL (<200); CHOLESTEROL RISK RATIO 3.91 (<5); LDL CHOLESTEROL 49.5 MG/DL (<100); NON-HDL-C 76.7 MG/DL; TRIGLYCERIDES LEVEL 136.0 MG/DL (<150)
[2025-09-15 07:31] VITALS: BP 142/70; TEMP 97; O2SAT 95
[2025-09-15] MEDS: FLUTICASONE PROPIONATE 0.05% NASAL SPRAY 16 GM NARES SCH (09:00)
[2025-09-15] MEDS: MOM 30 ML SUSPENSION UDC PO PRN (09:03)
[2025-09-15] MEDS: NYSTATIN 100,000 UNITS/GM TOPICAL PWD 15 GM TOP PRN (09:03)
[2025-09-15 09:15] VITALS: BP 172/72
[2025-09-15 09:36] LABS: CALCIUM LEVEL 8.7 MG/DL (8.3-10.6); CARBON DIOXIDE LEVEL 29.0 MMOL/L (20-31); CHLORIDE LEVEL 109.0 MMOL/L (98-107); CREATININE FOR GFR 0.94 MG/DL (0.55-1.30); GLOMERULAR FILTRATION RATE 60.2 (>32); MAGNESIUM LEVEL 2.1 MG/DL (1.8-2.4); POTASSIUM SERUM 3.6 MMOL/L (3.5-5.1); SODIUM LEVEL 146.0 MMOL/L (136-145)
== END 2025-09-15 12:18 | disposition home health service (06) ==
LOC: M ED 10:20 → M ED INP 10:21 → M PCU 21:04
PROVIDERS: ADMIT Student in an Organized Health Care Education/Training Program; ATTEND Student in an Organized Health Care Education/Training Program
DX: G45.9 Transient cerebral ischemic attack, unspecified (principal); F03.90 Unspecified dementia, unspecified severity, without behavioral disturbance, psychotic disturbance, mood disturbance, and anxiety; I11.9 Hypertensive heart disease without heart failure; I50.9 Heart failure, unspecified; E78.5 Hyperlipidemia, unspecified; K21.9 Gastro-esophageal reflux disease without esophagitis; Z79.2 Long term (current) use of antibiotics; Z79.899 Other long term (current) drug therapy
CPT/HCPCS: 36415; 70450; 70496; 70498; 70551; 71045; 80047; 80048; 80061; 80076; 80143; 80307; 81001; 82077; 82140; 82550; 82553; 82803; 83605; 83735; 83930; 84443; 84484; 85025; 87040; 87486; 87581; 87633; 87798; 93005; 93041; 94760; 96372; 97161; 97530; 99285; G0378; Q9967